=== PATIENT | female | born 1960 | race Caucasian/White ===

== ENCOUNTER 2020-05-22 12:20 | Emergency (ER) | payer OTHER ==
[~2020-05-22] VITALS: Ht 165.1 cm; Wt 88.0 kg
[2020-05-22 12:24] VITALS: BP 147/66
[2020-05-22] MEDS ORDERED: MULT-1469 PO (12:41)
[2020-05-22] MEDS ORDERED: ASPI-1822 PO (12:41)
[2020-05-22] MEDS ORDERED: ACET-9882 PO (12:41)
[2020-05-22] MEDS ORDERED: PANT40EC PO (12:41)
[2020-05-22] MEDS ORDERED: LISI-420 PO (12:41)
[2020-05-22] MEDS ORDERED: HYDR-5092 PO (12:41)
[2020-05-22] MEDS ORDERED: ALPR1TAB2 PO (12:41)
[2020-05-22] MEDS ORDERED: AMLO10TA PO (12:41)
[2020-05-22] MEDS ORDERED: VANC125C10 PO (12:41)
[2020-05-22] MEDS ORDERED: AMIO100T3 PO (12:41)
[2020-05-22] MEDS ORDERED: COLL30OI TP (12:41)
[2020-05-22] MEDS ORDERED: APIX5TAB PO (12:41)
[2020-05-22] MEDS ORDERED: BISA-213 RC (12:41)
[2020-05-22] MEDS ORDERED: LIP80 PO (12:41)
[2020-05-22] MEDS ORDERED: ACET-2619 PO (12:41)
[2020-05-22] MEDS ORDERED: CARV12.5 PO (12:41)
[2020-05-22] MEDS ORDERED: MODA200T39 PO (12:41)
[2020-05-22] MEDS ORDERED: SEN30 PO (12:41)
[2020-05-22] MEDS ORDERED: LEVO0.2T5 PO (12:41)
[2020-05-22] MEDS ORDERED: MAGN400S60 PO (12:41)
--- NOTE | 2020-05-22 12:52 | NUR ---
60 YO FEMALE BIBA TO ED FOR DIALYSIS . PT STATES SHE HAS DIALYSIS ON M// AND HS NOT GONE SINCE 05/14. DENIES N/V/D; SKIN IS PINK/WARM/DRY; AAOX4 WITH EVEN AND STEADY GAIT; LUNGS CLEAR BL; HR EVEN AND REGULAR; PT DENIES ANY FEVER, CP, SOB, OR COUGH AT THIS TIME; PATIENT STATES PAIN OF 0/10 AT THIS TIME; VSS; PATIENT POSITIONED FOR COMFORT; HOB ELEVATED; BEDRAILS UP X2; BED DOWN. ER MD MADE AWARE OF PT STATUS. medhx: Kidney disease, DM, Afib, Anemia, HTN, Hypothyroid
[2020-05-22 12:53] LABS: BASOPHILS # (AUTO) 0.2 K/uL (0.00-0.22); BASOPHILS % (AUTO) 2.6 % (0.0-2.0); EOSINOPHILS # (AUTO) 0.2 K/uL (0-0.4); EOSINOPHILS % (AUTO) 2.8 % (0.0-4.0); HEMOGLOBIN 9.8 g/dL (12.0-16.0); LYMPHOCYTES # (AUTO) 0.8 K/uL (2.5-16.5); LYMPHOCYTES % (AUTO) 12.1 % (20.5-51.1); MEAN CORPUSCULAR HEMOGLOBIN 33 pg (27-31); MEAN CORPUSCULAR HGB CONC 34 g/dL (33-37); MEAN CORPUSCULAR VOLUME 96.5 fL (80-94); MONOCYTES # (AUTO) 0.7 K/uL (0.8-1.0); MONOCYTES % (AUTO) 10.4 % (1.7-9.3); NEUTROPHILS # (AUTO) 4.7 K/uL (1.8-7.7); NEUTROPHILS % (AUTO) 72.1 % (42.2-75.2); PLATELET COUNT (AUTO) 238 K/uL (140-450); WHITE BLOOD COUNT (AUTO) 6.5 K/uL (4.8-10.8)
--- NOTE | 2020-05-22 13:07 | NUR ---
LAB AT BEDSIDE TO REDRAW LABS
[2020-05-22 13:32] LABS: CARBON DIOXIDE 22.2 mmol/L (21-32); POTASSIUM 4.2 mmol/L (3.5-5.1); TOTAL BILIRUBIN 0.4 mg/dL (0.0-1.0)
[2020-05-22 13:35] LABS: CREATININE 5.4 mg/dL (0.6-1.3)
--- NOTE | 2020-05-22 15:36 | NUR ---
BEDSIDE PHONE PROVIDED AND PT IS SPEAKING WITH HER AT THIS TIME.
[2020-05-22 16:09] VITALS: BP 148/62
--- NOTE | 2020-05-22 16:11 | NUR ---
Patient to be transferred to [facility]. Is being transferred due to INSURANCE. Receiving facility has accepting physician and available space. ER physician has signed transfer form. Patient or responsible alliance party has agreed to transfer and signed form. Patient belongings inventoried and will be sent with patient. Copy of nursing notes, lab reports, EKG, Physicians Orders and X-rays to be sent with patient. Report called to CASSIDY JIMÉNEZ at receiving facility. [facility] ambulance service has been called for transfer.
== END 2020-05-22 16:09 | disposition short-term general hospital (02) ==
LOC: MED 12:20
DX: E11.22 Type 2 diabetes mellitus with diabetic chronic kidney disease (principal); I12.0 Hypertensive chronic kidney disease with stage 5 chronic kidney disease or end stage renal disease; N18.6 End stage renal disease; Z99.2 Dependence on renal dialysis; Z79.899 Other long term (current) drug therapy; Z95.0 Presence of cardiac pacemaker; Z79.82 Long term (current) use of aspirin; Z88.8 Allergy status to other drugs, medicaments and biological substances
CPT/HCPCS: 36415; 71045; 80053; 83880; 84484; 85025; 93005; 99285